=== PATIENT | male | born 2000 | race African-American/Black ===

== ENCOUNTER 2022-07-02 18:35 | Emergency (ER) | payer SELFPAY ==
[2022-07-02] MEDS ORDERED: methylPREDNISolone Sodium Succinate 125 MG/2 ML SDV IM ONE (18:55)
[2022-07-02] MEDS ORDERED: Ketorolac 60 MG/2 ML SDV IM ONE (18:55)
[2022-07-02] MEDS ORDERED: Acetaminophen/Codeine 120-12 MG/5 ML Soln 5 ML UD Cup PO ONE (19:05)
[2022-07-02] MEDS ORDERED: predniSONE 20 MG Tab PO ONE (19:05)
== END 2022-07-02 20:25 | disposition home or self-care (01) ==
LOC: MW.ED 18:35
DX: J06.9 Acute upper respiratory infection, unspecified (principal); F17.210 Nicotine dependence, cigarettes, uncomplicated; Z91.018 Allergy to other foods; Z91.013 Allergy to seafood; Z20.822 Contact with and (suspected) exposure to COVID-19
CPT/HCPCS: 87635; 87651; 99283; A9270; U0002